=== PATIENT | male | born 1995 | race American Indian/Alaskan Native ===

== ENCOUNTER 2021-05-12 17:25 | Emergency (ER) | payer SELFPAY ==
[2021-05-12] MEDS ORDERED: diphenhydrAMINE 25 MG CAP PO ONE (19:24)
[2021-05-12] MEDS ORDERED: ACETAMINOPHEN 500 MG TAB PO ONE (19:24)
[2021-05-12] MEDS ORDERED: predniSONE 20 MG TAB PO ONE (19:24)
[2021-05-12] MEDS ORDERED: METOCLOPRAMIDE 10 MG TAB PO ONE (19:25)
--- NOTE | 2021-05-12 19:43 | Emergency Department Report ---
ED General Adult HPI - General Chief complaint: Chest Pain Stated complaint: FACIAL NUMBNESS/DIZZY Time Seen by Provider: 05/12/21 19:22 Source: patient Mode of arrival: Ambulatory Limitations: No Limitations - History of Present Illness Initial comments: Patient 25-year-old male with history of hypertension and obesity who presents for chest pain and headache. Headache is frontal radiating to right eye: Photophobia and intermittent nausea. Been no fevers no chills. Pain rated at 4/10 estimated by activity described as sharp achy. Patient denies cough there is no dizziness, lightheadedness, no rhinorrhea no shortness of breath or wheezing. Patient currently not taking antihypertensive medications. Drove self to ED remains alert oriented x3 is amatory no acute distress. - Related Data Previous Rx's Medication Instructions Recorded Last Taken Type Ibuprofen [Motrin 800 MG tab] 800 mg PO Q8HR PRN #30 tablet 05/12/21 Unknown Rx Metoclopramide [Reglan] 10 mg PO TID #15 tab 05/12/21 Unknown Rx diphenhydrAMINE [Benadryl CAP] 25 mg PO Q8HR PRN #15 capsule 05/12/21 Unknown Rx Allergies Allergy/AdvReac Type Severity Reaction Status Date / Time No Known Allergies Allergy Unverified 05/12/21 17:31 ED Review of Systems ROS: Stated complaint: FACIAL NUMBNESS/DIZZY Other details as noted in HPI Constitutional: denies: chills, fever Eyes: denies: eye pain, eye discharge, vision change ENT: denies: ear pain, throat pain Respiratory: denies: cough, shortness of breath, wheezing Cardiovascular: chest pain. denies: palpitations, dyspnea on exertion, orthopnea, paroxysmal nocturnal dyspnea Endocrine: no symptoms reported Gastrointestinal: denies: abdominal pain, nausea, diarrhea Genitourinary: denies: urgency, dysuria Musculoskeletal: denies: back pain, joint swelling, arthralgia Skin: denies: rash, lesions Neurological: headache, numbness, paresthesias. denies: weakness, confusion, vertigo Psychiatric: denies: anxiety, depression Hematological/Lymphatic: denies: easy bleeding, easy bruising ED Past Medical Hx - Medications Home Medications: Home Medications Medication Instructions Recorded Confirmed Last Taken Type Ibuprofen [Motrin 800 MG tab] 800 mg PO Q8HR PRN #30 tablet 05/12/21 Unknown Rx Metoclopramide [Reglan] 10 mg PO TID #15 tab 05/12/21 Unknown Rx diphenhydrAMINE [Benadryl CAP] 25 mg PO Q8HR PRN #15 capsule 05/12/21 Unknown Rx ED Physical Exam - General Limitations: No Limitations General appearance: alert, in no apparent distress - Head Head exam: Present: normocephalic, normal inspection - Eye Eye exam: Present: PERRL, EOMI. Absent: conjunctival injection, nystagmus Pupils: Present: normal accommodation - ENT ENT exam: Present: normal orophraynx, mucous membranes moist, TM's normal bilaterally, normal external ear exam, other (Turbinates boggy erythema) - Neck Neck exam: Present: normal inspection, full ROM. Absent: tenderness, meningismus, lymphadenopathy, thyromegaly - Respiratory Respiratory exam: Present: normal lung sounds bilaterally. Absent: respiratory distress, wheezes, stridor, chest wall tenderness - Cardiovascular Cardiovascular Exam: Present: regular rate, normal rhythm, normal heart sounds. Absent: systolic murmur, diastolic murmur, rubs, gallop - GI/Abdominal GI/Abdominal exam: Present: soft, normal bowel sounds. Absent: distended, tenderness, guarding, rebound, rigid, bruit, hernia - Rectal Rectal exam: Present: deferred - Extremities Exam Extremities exam: Present: normal inspection, full ROM, normal capillary refill. Absent: tenderness - Back Exam Back exam: Present: normal inspection, full ROM. Absent: CVA tenderness (R), CVA tenderness (L), vertebral tenderness - Neurological Exam Neurological exam: Present: alert, oriented X3, normal gait, reflexes normal. Absent: motor sensory deficit - Expanded Neurological Exam Expanded Patient oriented to: Present: person, place, time Speech: Present: fluid speech Cranial nerves: EOM's Intact: Normal, Gag Reflex: Normal, Tongue Deviation: Normal Cerebellar function: Finger to Nose: Normal Upper motor neuron: Pronator Drift: Normal Sensory exam: Upper Extremity Light Touch: Normal, Upper Extremity Pin Prick: Normal, Upper Extremity Temperature: Normal Motor strength exam: RUE: 5, LUE: 5, RLE: 5, LLE: 5 DTR: knee (R): 1+, knee (L): 1+ Best Eye Response ([place]): (4) open spontaneously Best Motor Response ([place]): (6) obeys commands Best Verbal Response ([place]): (5) oriented [place] Total: 15 - Psychiatric Psychiatric exam: Present: normal affect, normal mood - Skin Skin exam: Present: warm, dry, intact, normal color. Absent: rash ED Course Vital Signs 05/12/21 17:33 Temperature 98.5 F Pulse Rate 70 Respiratory 17 Rate Blood Pressure 148/90 O2 Sat by Pulse 99 Oximetry ED Medical Decision Making - Lab Data Result diagrams: 05/12/21 19:27 05/12/21 19:27 Labs 05/12/21 05/12/21 19:27 19:27 WBC 6.8 RBC 4.74 Hgb 14.8 Hct 45.7 H MCV 96 H MCH 31 MCHC 32 RDW 13.6 Plt Count 233 Lymph % (Auto) 22.9 [place] % (Auto) 7.0 Eos % (Auto) 1.0 Baso % (Auto) 0.6 Lymph # (Auto) 1.6 [place] # (Auto) 0.5 Eos # (Auto) 0.1 Baso # (Auto) 0.0 Seg Neutrophils % 68.5 Seg Neutrophils # 4.7 Sodium 133 L Potassium 3.7 Chloride 93.5 L Carbon Dioxide 23 Anion Gap 20 BUN 10 Creatinine 0.9 Estimated GFR > 60 BUN/Creatinine Ratio 11 Glucose 95 Calcium 9.6 Total Bilirubin 0.50 AST 35 ALT 49 Alkaline Phosphatase 44 Troponin T < 0.010 Total Protein 8.1 Albumin 4.7 Albumin/Globulin Ratio 1.4 - EKG Data EKG shows normal: sinus rhythm, axis, intervals, QRS complexes, ST-T waves Rate: normal - EKG Data When compared to previous EKG there are: previous EKG unavailable Interpretation: normal EKG (NSR No STEMI, interp by ed attending ) - Radiology Data Radiology results: report reviewed, image reviewed CHEST 2 VIEWS INDICATION: chest pain. COMPARISON: None. FINDINGS: Support devices: None. Heart: Within normal limits. Lungs/Pleura: No acute air space or interstitial disease. No significant pleu ral effusion. IMPRESSION: No acute findings. Signer Name: Rodolfo Heller MD Signed: 05/12/2021 8:19 PM Workstation Name: [id number] INDICATION / CLINICAL INFORMATION: 25 years Male; headache. TECHNIQUE: Routine CT head without contrast. All CT scans at this location are performed using CT dose reduction for ALARA by means of automated exposure control. COMPARISON: None. FINDINGS: BRAIN / INTRACRANIAL CONTENTS: No acute hemorrhage, mass effect, midline shift, hydrocephalus, or acute, large territorial infarct. No chronic infarct or focal atrophy. Normal brain volume and ventricular/sulcal size for age. No significant white matter abnormality. CRANIOCERVICAL JUNCTION: No significant abnormality. ORBITS: No significant abnormality of visualized orbits. SINUSES / MASTOIDS: No significant abnormality of the visualized paranasal sinuses or mastoid air cells. ADDITIONAL FINDINGS: None. IMPRESSION: No focal parenchymal lesion Signer Name: Jony Rutherford MD Signed: 05/12/2021 8:19 PM Workstation Name: [id number] Transcribed By: CHRIS Dictated By: Jony Villeda MD Electronically Authenticated By: Jony Villeda MD Signed Date/Time: 05/12/212018 - Medical Decision Making Headache is improved with medications given in ED. EKG is normal sinus rhythm no ST elevated [place] interpreted by ED attending. Heart score 0, chest x-ray is normal no infiltrates no opacities. Plan treat for headache, URI, hydrate as directed. Follow-up with your doctor in 2 to 3 days. Take all medications as p rescribed. Return to emergency department if symptoms worsen. Critical care attestation.: If time is entered above; I have spent that time in minutes in the direct care of this critically ill patient, excluding procedure time. ED Disposition Clinical Impression: Sinus headache, Mild dehydration URI (upper respiratory infection) Qualifiers: URI type: unspecified viral URI Qualified Code(s): J06.9 - Acute upper respiratory infection, unspecified Disposition: 01 HOME / SELF CARE / HOMELESS Is pt being admited?: No Does the pt Need Aspirin: No Condition: Stable Instructions: Rehydration, Adult, Viral Respiratory Infection, Sinus Headache Additional Instructions: Take medications as prescribed, follow-up with your doctor in 2 to 3 days. Return to emergency department should symptoms worsen. Prescriptions: diphenhydrAMINE [Benadryl CAP] 25 mg PO Q8HR PRN #15 capsule PRN Reason: Headache Ibuprofen [Motrin 800 MG tab] 800 mg PO Q8HR PRN #30 tablet PRN Reason: pain fever Metoclopramide [Reglan] 10 mg PO TID #15 tab Referrals: OLIVE SPENCE MD [Staff Physician] - 3-5 Days Forms: Work/School Release Form(ED) Time of Disposition: 21:49
[2021-05-12 19:44] LABS: Basophils % (Auto) 0.6 % (0.0-1.8); Eosinophils # (Auto) 0.1 K/mm3 (0.0-0.4); Hematocrit 45.7 % (35.5-45.6); Hemoglobin 14.8 gm/dl (11.8-15.2); Lymphocytes # (Auto) 1.6 K/mm3 (1.2-5.4); Lymphocytes % (Auto) 22.9 % (13.4-35.0); Mean Corpuscular HGB Conc 32 % (32-34); Mean Corpuscular Volume 96 fl (84-94); Monocytes # (Auto) 0.5 K/mm3 (0.0-0.8); Platelet Count 233 K/mm3 (140-440); Red Blood Count 4.74 M/mm3 (3.65-5.03); Red Cell Distribution Width 13.6 % (13.2-15.2)
[2021-05-12 20:05] LABS: Alanine Aminotransferase 49 units/L (7-56); Albumin 4.7 g/dL (3.9-5); BUN/Creatinine Ratio 11; Blood Urea Nitrogen 10 mg/dL (9-20); Calcium 9.6 mg/dL (8.4-10.2); Hemolysis Index 8
[2021-05-12] MEDS ORDERED: SODIUM CHLORIDE 0.9% 1000 ML 1,000 ML IV ONE (20:10)
--- NOTE | 2021-05-12 20:23 | Cat Scan Report ---
NONENHANCED CT SCAN OF THE HEAD: INDICATION / CLINICAL INFORMATION: 25 years Male; headache. TECHNIQUE: Routine CT head without contrast. All CT scans at this location are performed using CT dos e reduction for ALARA by means of automated exposure control. COMPARISON: None. FINDINGS: BRAIN / INTRACRANIAL CONTENTS: No acute hemorrhage, mass effect, midline shift, hydrocephalus, or acu te, large territorial infarct. No chronic infarct or focal atrophy. Normal brain volume and ventricul ar/sulcal size for age. No significant white matter abnormality. CRANIOCERVICAL JUNCTION: No significant abnormality. ORBITS: No significant abnormality of visualized orbits. SINUSES / MASTOIDS: No significant abnormality of the visualized paranasal sinuses or mastoid air eddie ls. ADDITIONAL FINDINGS: None. IMPRESSION: No focal parenchymal lesion Signer Name: Jony Rutherford MD Signed: 05/12/2021 8:19 PM Workstation Name: [id number]
--- NOTE | 2021-05-12 20:24 | XRay Report ---
CHEST 2 VIEWS INDICATION: chest pain. COMPARISON: None. FINDINGS: Support devices: None. Heart: Within normal limits. Lungs/Pleura: No acute air space or interstitial disease. No significant pleural effusion. IMPRESSION: No acute findings. Signer Name: Rodolfo Heller MD Signed: 05/12/2021 8:19 PM Workstation Name: [id number]
[2021-05-12 22:22] VITALS: BP 140/92
--- NOTE | 2021-05-13 13:03 | Electrocardiograph Report ---
[facility] Test Date: 2021-05-12 Test Time: 17:44:05 Pat Name: RAVIN GONSALEZ Department: Room: Gender: M Policy Issue Clerk: thao : 1995 Requested By: KENDAL DEWITT Order Number: [id number] Reading MD: Jordan Shannon Measurements Intervals [place] Rate: 62 P: 69 IN: 163 QRS: 12 QRSD: 100 T: 4 QT: 419 QTc: 427 Interpretive Statements Sinus rhythm ST segment elevation, consider early repolarization ST changes or acute injury No previous ECG available for comparison Electronically Signed On 05-13-2021 13:03:49 EST by Jordan Shannon
== END 2021-05-12 22:22 | disposition home or self-care (01) ==
LOC: ED 17:25
DX: J06.9 Acute upper respiratory infection, unspecified (principal); E86.0 Dehydration; R51.9 Headache, unspecified
CPT/HCPCS: 36415; 70450; 71046; 80053; 84484; 85025; 93005; 96360; 99284; J7030; J7512